=== PATIENT | male | born 1965 | race Caucasian/White ===

== ENCOUNTER 2024-07-24 04:12 | Inpatient (IN) | payer MEDICAID, OTHER ==
[~2024-07-24] VITALS: Ht 185.4 cm; Wt 72.6 kg
[2024-07-24] VITALS (28 sets, daily range): BP systolic 98–141; BP diastolic 47–109; TEMP 97.3–98.6; O2SAT 89–99
[2024-07-24 04:44] LABS: MEAN CORPUSCULAR HGB CONC 29 g/dl (31.0-36.0); MONOCYTES # (AUTO) 0.3 K/uL (0.1-1.30); NEUTROPHILS # (AUTO) 2.6 K/uL (1.8-8.9); PLATELET COUNT (AUTO) 172 K/uL (150-450); WHITE BLOOD COUNT (AUTO) 3.6 K/uL (4.3-11.0)
[2024-07-24 04:51] LABS: BASOPHILS % (AUTO) 0.6 % (0.0-2.0); EOSINOPHILS % (AUTO) 1.3 % (0.0-6.0); LYMPHOCYTES # (AUTO) 0.7 K/uL (0.8-4.8); MEAN CORPUSCULAR HEMOGLOBIN 22 PG (26.0-33.0); MEAN CORPUSCULAR VOLUME 75 fL (80-96); MONOCYTES % (AUTO) 7.7 % (2.0-12.0); NEUTROPHILS % (AUTO) 71.4 % (43.0-81.0); RED BLOOD CELL COUNT(AUTO) 2.44 MIL/uL (4.5-6.0)
[2024-07-24 04:53] LABS: CALCIUM, SERUM 8.5 mg/dL (8.5-10.1); CARBON DIOXIDE 21 mmol/L (21-32); CHLORIDE 98 mmol/L (98-107); CREATININE 0.4 mg/dL (0.6-1.3); GLUCOSE 53 mg/dL (74-106); HEMATOCRIT 18 % (39-51); HEMOGLOBIN 5.3 g/dL (13.5-17.5); POTASSIUM 3.7 mmol/L (3.5-5.1); SODIUM SERUM 134 mmol/L (136-145); UREA NITROGEN, BLOOD 13 mg/dL (7-18)
[2024-07-24 04:58] LABS: ALANINE AMINOTRANSFERASE 64 U/L (12-78); ALBUMIN 2.6 g/dL (3.4-5.0); ALCOHOL, BLOOD 20 mg/dL (0-10); ALKALINE PHOSPHATASE 162 U/L (46-116); ASPARTATE AMINOTRANSFERASE 96 U/L (15-37); BILIRUBIN,DIRECT 0.2 mg/dL (0.0-0.2); BILIRUBIN,TOTAL 0.3 mg/dL (0.2-1.0); SALICYLATE 8.5 mg/dL (2.8-20.0); TOTAL PROTEIN, SERUM 7.6 g/dL (6.4-8.2)
[2024-07-24 04:59] LABS: INR 1.34 (0.91-1.10); PROTHROMBIN TIME 13.9 SECS (9.2-11.1)
[2024-07-24 05:03] LABS: ACETAMINOPHEN <10 ug/ml (10-30)
[2024-07-24 05:08] LABS: D-DIMER 1.13 mg/L(FEU (0.17-0.50)
[2024-07-24 05:13] LABS: MAGNESIUM 2.2 mg/dL (1.8-2.4)
[2024-07-24 05:15] LABS: LACTIC ACID 6.1 mmol/L (0.4-2.0)
[2024-07-24] MEDS: IV NS 0.9% 1,000 ML BAG IV ONE (05:46)
[2024-07-24 05:52] LABS: EOSINOPHILS % (MANUAL) 1 % (0-4); LYMPHOCYTES % (MANUAL) 17 % (16-48); MONOCYTES % (MANUAL) 7 % (0-11.0); NEUTROPHILS % (MANUAL) 75 (42-76); PLATELET ESTIMATE ADEQUATE
[2024-07-24 05:53] LABS: ANISOCYTOSIS 2+; HYPOCHROMASIA 2+
[2024-07-24 06:11] LABS: APPEARANCE,URINE CLEAR (CLEAR); BILIRUBIN,URINE 1+ (NEGATIVE); BLOOD, URINE TRACE-INTA Ery/uL (NEGATIVE); COLOR,URINE YELLOW (YELLOW); KETONES,URINE 2+ mg/dL (NEGATIVE); LEUKOCYTE ESTERASE ,URINE NEGATIVE (NEGATIVE); NITRITE, URINE NEGATIVE (NEGATIVE); PH,URINE 5.5 (5.0-8.0); PROTEIN,URINE NEGATIVE (NEGATIVE); UGLUCOSE NEGATIVE (NEGATIVE); UROBILINOGEN,URINE 0.2 EU/dL (0.2)
[2024-07-24 06:19] LABS: ADD URINE CULTURE NO; AMPHETAMINE, URINE NEGATIVE (NEGATIVE); BACTERIA,URINE Rare /HPF (None Seen); BARBITURATE, URINE NEGATIVE (NEGATIVE); BENZODIAZEPINE, URINE NEGATIVE (NEGATIVE); CANNABINOID, URINE NEGATIVE (NEGATIVE); COCCAINE, URINE NEGATIVE (NEGATIVE); MUCUS,URINE Moderate /LPF (None Seen); OPIATE, URINE NEGATIVE (NEGATIVE); PHENCYCLIDINE SCREEN,URINE NEGATIVE (NEGATIVE); SQUAMOUS EPITHELIAL CELL,UR None Seen /HPF (None Seen); WBC,URINE 0-2 /HPF (0-3)
[2024-07-24 06:20] LABS: FINE GRANULAR CASTS,URINE Rare /LPF (None Seen); HYALINE CASTS, URINE Rare /LPF (None Seen)
[2024-07-24] MEDS: IV D5/0.45 NACL 1,000 ML IV SCH (06:30)
[2024-07-24] MEDS ORDERED: Z GUARD REMEDY 4 OZ OINT TP PRN (06:30)
[2024-07-24] MEDS ORDERED: ONDANSETRON HCL/PF 4 MG/2 ML VIAL IVP PRN (06:30)
[2024-07-24] MEDS ORDERED: ACETAMINOPHEN 650 MG/SUPP.RECT RC PRN (06:30)
[2024-07-24 07:16] LABS: IRON, SERUM 6 ug/dl (50-175); TOTAL IRON BINDING CAPACITY 304 ug/dl (250-450)
[2024-07-24] MEDS: VANCOMYCIN 1.5 GM in IV D5W 500 ML IV ONE (07:30)
[2024-07-24] MEDS: PIPERACILLIN /TAZOBACTAM 3.375 G in IV D5W 50 ML IV ONE (08:29)
[2024-07-24] MEDS: PANTOPRAZOLE 40 MG VIAL IV SCH (10:46)
[2024-07-24] MEDS ORDERED: DEXTROSE 50%-WATER 50 ML DISP.SYRIN IV PRN (12:00)
[2024-07-24] MEDS: BLOOD SUGAR DIAGNOSTIC 1 EACH STRIP IN SCH (12:34)
[2024-07-24] MEDS ORDERED: SOD FERRIC GLUC 125 MG in IV NS 0.9% 100 ML IV SCH (14:00)
[2024-07-24] MEDS: PIPERACILLIN /TAZOBACTAM 3.375 G in IV D5W 100 ML IV SCH (15:33)
[2024-07-24] MEDS: VANCOMYCIN HCL 1.25 GM in IV D5W 250 ML IV SCH (16:39)
[2024-07-24] MEDS: IV D5/0.45 NACL 1,000 ML IV PRN (17:46)
[2024-07-24] MEDS ORDERED: CT SWABBABLE VALVE TRANS SET 1 EA INFUS.SET MC ONE (18:27)
[2024-07-24] MEDS ORDERED: IOHEXOL-300 100 ML VIAL IV ONE (18:27)
[2024-07-24] MEDS ORDERED: IV NS 0.9% 250 ML IV ONE (18:28)
[2024-07-24 19:35] LABS: HEMOGLOBIN 4.8 g/dL (13.5-17.5)
[2024-07-24 22:00] LABS: INR 1.35 (0.91-1.10)
[2024-07-25] VITALS (32 sets, daily range): BP systolic 113–152; BP diastolic 61–120; TEMP 97.2–98.5; O2SAT 91–100
[2024-07-25] MEDS: ALBUTEROL FS 2.5 MG/0.5 ML VIAL.NEB NEB ONE (02:35)
[2024-07-25] MEDS: IPRATROPIUM NEB FS 0.5 MG/2.5 ML AMPUL.NEB NEB ONE (02:35)
[2024-07-25 07:14] LABS: BASOPHILS % (AUTO) 0.5 % (0.0-2.0); EOSINOPHILS % (AUTO) 0.4 % (0.0-6.0); LYMPHOCYTES # (AUTO) 0.6 K/uL (0.8-4.8); RED CELL DISTRIBUTION WIDTH 22.8 % (11.5-15.0)
[2024-07-25 07:27] LABS: ALBUMIN 2.2 g/dL (3.4-5.0); BILIRUBIN,TOTAL 0.9 mg/dL (0.2-1.0); CALCIUM, SERUM 7.7 mg/dL (8.5-10.1); CREATININE 0.6 mg/dL (0.6-1.3); MAGNESIUM 1.6 mg/dL (1.8-2.4); PHOSPHORUS 1.9 mg/dL (2.5-4.9); POTASSIUM 3.3 mmol/L (3.5-5.1); TOTAL PROTEIN, SERUM 6.5 g/dL (6.4-8.2)
[2024-07-25 07:31] LABS: LYMPHOCYTES % (AUTO) 11.7 % (20.0-44.0); MEAN CORPUSCULAR HEMOGLOBIN 23 PG (26.0-33.0); MEAN CORPUSCULAR HGB CONC 30 g/dl (31.0-36.0); MEAN CORPUSCULAR VOLUME 76 fL (80-96); MONOCYTES # (AUTO) 0.3 K/uL (0.1-1.30); MONOCYTES % (AUTO) 7.3 % (2.0-12.0); NEUTROPHILS # (AUTO) 3.8 K/uL (1.8-8.9); NEUTROPHILS % (AUTO) 80.1 % (43.0-81.0); PLATELET COUNT (AUTO) 164 K/uL (150-450); RED BLOOD CELL COUNT(AUTO) 3.07 MIL/uL (4.5-6.0); WHITE BLOOD COUNT (AUTO) 4.7 K/uL (4.3-11.0)
[2024-07-25 07:34] LABS: INR 1.21 (0.91-1.10); PARTIAL THROMBOPLASTIN TIME 32.2 SEC (24.3-34.3); PROTHROMBIN TIME 12.7 SECS (9.2-11.1)
[2024-07-25 07:41] LABS: HEMATOCRIT 23 % (39-51)
[2024-07-25 08:01] LABS: ANISOCYTOSIS 2+; HYPOCHROMASIA 2+; PLATELET ESTIMATE ADEQUATE
[2024-07-25] MEDS: NICOTINE PATCH (21MG) 21 MG PATCH.TD24 TD SCH (08:22)
[2024-07-25] MEDS: Magnesium 1GM/D5W 100ML PREMIX 100 ML IV SCH (09:48)
[2024-07-25] MEDS: POTASSIUM CL. PREMIX PERIPHER. 50 ML IV SCH (11:03)
[2024-07-25] MEDS: INSULIN REGULAR, HUMAN 100 UNIT/ML 3 ML VIAL SQ PRN (12:34)
[2024-07-25] MEDS: SOD FERRIC GLUC 125 MG in IV NS 0.9% 100 ML IV SCH (14:35)
[2024-07-25] MEDS: Sodium Phosphate 15 MMOL in IV NS 0.9% 245 ML IV ONE (16:59)
[2024-07-25] MEDS ORDERED: ACETAMINOPHEN 325 MG TABLET PO ONE (17:00)
[2024-07-25] MEDS ORDERED: diphenhydrAMINE HCL 50 MG/ML VIAL IV ONE (17:00)
[2024-07-25] MEDS ORDERED: NICOTINE PATCH (21MG) 21 MG PATCH.TD24 TD SCH (18:00)
[2024-07-25 18:03] LABS: HEMOGLOBIN 7.8 g/dL (13.5-17.5)
[2024-07-25 18:34] LABS: LIPASE > 375 U/L (16-77)
[2024-07-25 18:36] LABS: AMYLASE 110 U/L (25-115)
[2024-07-26] VITALS (8 sets, daily range): BP systolic 117–150; BP diastolic 75–79; TEMP 97.5–98.1; O2SAT 91–96
[2024-07-26] MEDS: THIAMINE HCL 100 MG TABLET PO SCH (08:29)
[2024-07-26] MEDS: PANTOPRAZOLE 40 MG TABLET.DR PO SCH (09:00)
[2024-07-27 08:06] LABS: IMMUNOGLOBULIN A, SERUM 672 mg/dL (90-386); IMMUNOGLOBULIN G, SERUM 1650 mg/dL (603-1613); IMMUNOGLOBULIN M, SERUM 112 mg/dL (20-172)
[2024-07-27 09:08] LABS: FOLIC ACID 7.8 ng/mL (>3.0)
[2024-07-27 16:07] LABS: FREE KAPPA LT CHAINS SERUM 76.3 mg/L (3.3-19.4); FREE LAMBDA LT CHAIN SERUM 58.1 mg/L (5.7-26.3); KAPPA/LAMBDA RATIO SERUM 1.31 (0.26-1.65)
== END 2024-07-26 16:50 | disposition left against medical advice (07) | DRG 815 ==
LOC: ER 04:14 → EDBD 08:37 → ICU 08:37 → TELE1 07-25 18:27 → MEDSG1 07-26 09:45
PROC: 30233M1 Transfusion of Nonautologous Plasma Cryoprecipitate into Peripheral Vein, Percutaneous Approach (ICD-10-PCS; principal; 2024-07-24)
PROC: 30233N1 Transfusion of Nonautologous Red Blood Cells into Peripheral Vein, Percutaneous Approach (ICD-10-PCS; 2024-07-24)
DX: T68.XXXA Hypothermia, initial encounter (principal); G93.41 Metabolic encephalopathy; K85.90 Acute pancreatitis without necrosis or infection, unspecified; E23.6 Other disorders of pituitary gland; E87.20 Acidosis, unspecified; J18.9 Pneumonia, unspecified organism; E72.20 Disorder of urea cycle metabolism, unspecified; J81.1 Chronic pulmonary edema; D50.9 Iron deficiency anemia, unspecified; F10.129 Alcohol abuse with intoxication, unspecified; E88.09 Other disorders of plasma-protein metabolism, not elsewhere classified; F17.210 Nicotine dependence, cigarettes, uncomplicated; Z59.00 Homelessness unspecified; Z20.822 Contact with and (suspected) exposure to COVID-19; Y90.1 Blood alcohol level of 20-39 mg/100 ml; R74.01 Elevation of levels of liver transaminase levels; E16.2 Hypoglycemia, unspecified; X31.XXXA Exposure to excessive natural cold, initial encounter; J01.00 Acute maxillary sinusitis, unspecified; A09 Infectious gastroenteritis and colitis, unspecified
CPT/HCPCS: 36415; 70450-TC; 71045-TC; 71260-TC; 80048-TC; 80053-TC; 80076-TC; 80202-TC; 81001; 82140-TC; 82150-TC; 82378; 82550-TC; 82607-TC; 82784; 82962-TC; 83010; 83540-TC; 83605-TC; 83615-TC; 83690-TC; 83735-TC; 84100-TC; 84155; 84165; 84439-TC; 84443-TC; 85025-TC; 85027-TC; 85045-TC; 85378-TC; 85385-TC; 85610-TC; 85730-TC; 86334; 86850-TC; 86880-TC; 87081-TC; 92526; 92611-TC; 93307-TC; 94799-TC; A4223; A9563; G0378; G0480; J1815; J2470; J2543; J2916; J3371; J3475; J3480; J3490; J7030; J7040; J7050; J7060; P9012; P9016; Q9967